=== PATIENT | female | born 1955 | race Caucasian/White ===

== ENCOUNTER → 2017-11-02 | Outpatient (REF) | LOC: M SMT 13:37 | DX: M54.5 Low back pain (principal) ==

== ENCOUNTER 2024-10-30 11:42 | Day surgery (SDC) | payer OTHER ==
[~2024-10-30] VITALS: Ht 162.6 cm; Wt 62.7 kg
[~2024-10-30 11:42] MED LIST: ACET650T61 PO; LR 1,000 ML IV SCH; MIDAZOLAM INJ 2MG/2ML VIAL As Ordered ONE; fentaNYL 100 MCG/2 ML INJECTION As Ordered ONE
[2024-10-30] MEDS: FLURBIPROFEN 0.03% OPHTH SOLN 2.5 ML OD SCH (12:42)
[2024-10-30] MEDS: TETRACAINE 0.5% OPHTH SOLN 4ML OD SCH (12:42)
[2024-10-30] MEDS: CYCLOPENTOLATE 1% OPHTH SOLN 2ML BTL OD SCH (12:42)
[2024-10-30] MEDS: PHENYLEPHRINE 2.5% OPHTH SOL 2ML OD SCH (12:42)
[2024-10-30] MEDS ORDERED: LIDOCAINE 1% SDV 5ML VIAL SC PRN (12:55)
[2024-10-30] MEDS: LIDOCAINE 1% SDV 5ML VIAL As Ordered ONE (14:02)
[2024-10-30] MEDS: CEFUROXIME 1MG/0.1ML INTRACAMERAL INJ As Ordered ONE (14:05)
[2024-10-30 14:26] VITALS: BP 131/59; TEMP 97.6; O2SAT 100
== END 2024-10-30 14:45 | disposition home or self-care (01) ==
LOC: M SDC 11:42
PROVIDERS: ATTEND Ophthalmology
DX: H25.11 Age-related nuclear cataract, right eye (principal); H25.011 Cortical age-related cataract, right eye; R51.9 Headache, unspecified; Z87.891 Personal history of nicotine dependence; Z88.0 Allergy status to penicillin
CPT/HCPCS: 66984; J0697; J2250; J3010; V2788